=== PATIENT | male | born 1990 | race American Indian/Alaskan Native ===

== ENCOUNTER 2018-12-13 19:41 | Emergency (ER) | payer SELFPAY ==
--- NOTE | 2018-12-13 19:48 | Event Note ---
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 Further treatment and workup at subsequent clinical providers discretion. Patient/guardian urged not to elope from the ED as their condition may be serious if not clinically assessed and managed. Initial orders include: EKG, CXR
[2018-12-13 19:49] VITALS: BP 123/64
--- NOTE | 2018-12-13 20:11 | XRay Report ---
CHEST PA AND LATERAL VIEWS INDICATION: CP. COMPARISON: None FINDINGS: Support devices: None Heart: Normal Lungs/Pleura: Very mild thoracolumbar scoliosis. No acute pulmonary disease. IMPRESSION: 1. No significant abnormality. Signer Name: Curtis Shelton MD Signed: 12/13/2018 8:07 PM Workstation Name: [id number]
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
[2018-12-13] MEDS ORDERED: IBUPROFEN PO ONE (23:11)
== END 2018-12-13 23:30 | disposition home or self-care (01) ==
LOC: ED 19:41
DX: M94.0 Chondrocostal junction syndrome [Tietze] (principal); F17.200 Nicotine dependence, unspecified, uncomplicated; Z98.890 Other specified postprocedural states; Z79.899 Other long term (current) drug therapy
CPT/HCPCS: 71046; 93005; 93010

== ENCOUNTER 2019-05-01 20:56 | Emergency (ER) | payer SELFPAY ==
--- NOTE | 2019-05-01 21:34 | Emergency Department Report ---
Blank Doc - Documentation Documentation: 28-year-old male that presents with midsternum CP and cough. Stated pain is a ggravated/worsened with palpation. Denies any radiation. This initial assessment/diagnostic orders/clinical plan/treatment(s) is/are subject to change based on patient's health status, clinical progression and re- assessment by fellow clinical providers in the ED. Further treatment and workup at subsequent clinical providers discretion. Patient/guardians urged not to elope from the ED as their condition may be serious if not clinically assessed and managed. Initial orders include: 1- Patient sent to [facility] for further evaluation and treatment 2- CXR
[2019-05-01 21:35] VITALS: BP 114/57
--- NOTE | 2019-05-01 22:32 | XRay Report ---
CHEST 2 VIEWS INDICATION: cough. COMPARISON: 12/13/2018 FINDINGS: Support devices: None. Heart: Within normal limits. Lungs: No acute air space or interstitial disease. Pleura: No significant pleural effusion. No pneumothorax. Additional findings: Scoliosis thoracolumbar spine IMPRESSION: 1. No acute findings. Signer Name: Cem Mayers MD Signed: 05/01/2019 10:28 PM Workstation Name: [id number]
== END 2019-05-01 23:45 | disposition left against medical advice (07) ==
LOC: ED 20:56
DX: R07.89 Other chest pain (principal); Z53.21 Procedure and treatment not carried out due to patient leaving prior to being seen by health care provider
CPT/HCPCS: 71046

== ENCOUNTER 2019-05-20 16:19 | Emergency (ER) | payer SELFPAY | END 2019-05-20 22:15 | disposition home or self-care (01) | LOC: ED 16:19 | CPT/HCPCS: 36415; 71046; 80048; 84484; 85025; 93005; 93010 ==

== ENCOUNTER 2019-07-29 16:49 | Emergency (ER) | payer SELFPAY ==
[2019-07-29 19:08] VITALS: BP 129/82
--- NOTE | 2019-07-29 19:14 | Event Note ---
ED Screening Note ED Screening Note: yesterday began having flu like symptoms states he had vomiting yesterday states his throat feels dry +subjective fever +dry cough no diarrhea PMHx none no allergies to meds he is able to keep fluids down today
--- NOTE | 2019-07-29 19:18 | Emergency Department Report ---
Chief Complaint: Upper Respiratory Infection Stated Complaint: FEVER,BODYACHE,VOMITTING Time Seen by Provider: 07/29/19 19:09 - HPI History of Present Illness: pt is a 28 yo male who presents to the ED with c/o dry cough +nasal congestion states began a couple of days ago +nausea states he had a couple of episodes of vomiting yesterday but none today no diarrhea no fever no SOB PMHx none no allergies to meds former smoker quit a year ago vitals are normal on exam: Non toxic appearing, no acute distress atraumatic, normocephalic normal appearance of the eyes, PERRL, EOMI, no periorbital edema or ecchymosis normal TMs and canals, normal oropharynx, no tonsilar hypertrophy or exudates moist mucus membranes regular heart rate and rhythm, no gallops, no rubs, no murmurs breath sounds are clear bilaterally, no w/r/r, no stridor A&O x4, no focal neuro deficit skin is warm, dry, intact Examination consistent with viral illness Patient is currently afebrile He has not taken any medications today no clinical signs of dehydration Discussed the importance of oral rehydration Discussed symptomatic and supportive care with patient Patient has no history of being immunocompromise, no lung disease, no past medical history advised pt to please increase your fluid intake over the next several days. may take mucinex or theraflu over the counter. may alternate ibuprofen or tylenol every 6-8 hours as needed for fever of 100.4 or greater. get plenty of rest. follow up with a primary care doctor. return to the emergency room for any new or worsening symptoms including but not limited to shortness of breath, coughing up brown/white sputum, unable to tolerate by mouth intake, continued fevers after a week of symptoms, etc. Medical screening examination performed and there is no threat to life or limb at this time Patient referred to primary care physician Discussed in detail with patient strict return precautions - Exam Vital Signs: Vital Signs 07/29/19 19:03 Temperature 99.1 F Pulse Rate 64 Respiratory 20 Rate Blood Pressure 129/82 O2 Sat by Pulse 99 Oximetry MSE screening note: Focused history and physical exam performed. ED Disposition for MSE Clinical Impression: Viral illness Disposition: MED SCREENING EXAM-LEFT Is pt being admited?: No Does the pt Need Aspirin: No Condition: Stable Instructions: Viral Syndrome (ED) Additional Instructions: please increase your fluid intake over the next several days. may take mucinex or theraflu over the counter. may alternate ibuprofen or tylenol every 6-8 hours as needed for fever of 100.4 or greater. get plenty of rest. follow up with a primary care doctor. return to the emergency room for any new or worsening symptoms including but not limited to shortness of breath, coughing up brown/white sputum, unable to tolerate by mouth intake, continued fevers after a week of symptoms, etc. Referrals: CURLY LUI MD [Staff Physician] - 2-3 Days [facility] [Outside] - 2-3 Days [facility] [Outside] - 2-3 Days Forms: Work/School Release Form(ED) Time of Disposition: 19:16 Print Language: BULGARIAN
== END 2019-07-29 19:30 | disposition left against medical advice (07) ==
LOC: ED 16:49
DX: B34.9 Viral infection, unspecified (principal); Z87.891 Personal history of nicotine dependence; Z98.890 Other specified postprocedural states
CPT/HCPCS: 99281

== ENCOUNTER 2020-03-22 21:16 | Emergency (ER) | payer SELFPAY ==
--- NOTE | 2020-03-23 00:21 | XRay Report ---
CHEST 1 VIEW 03/22/2020 11:10 PM INDICATION / CLINICAL INFORMATION: Chest Pain. COMPARISON: 02/17/20 FINDINGS: SUPPORT DEVICES: None. HEART / MEDIASTINUM: No significant abnormality. LUNGS / PLEURA: No significant pulmonary or pleural abnormality. No pneumothorax. ADDITIONAL FINDINGS: Mild thoracic scoliosis is unchanged. IMPRESSION: 1. No acute findings. No change. Signer Name: Vasyl Hernandez MD Signed: 03/23/2020 12:16 AM Workstation Name: [id number]
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
[2020-03-23 06:25] VITALS: BP 115/78
== END 2020-03-23 03:36 | disposition home or self-care (01) ==
LOC: ED 21:16
DX: R07.9 Chest pain, unspecified (principal); R51.9 Headache, unspecified; F17.200 Nicotine dependence, unspecified, uncomplicated; Z79.899 Other long term (current) drug therapy; Z98.890 Other specified postprocedural states
CPT/HCPCS: 71045; 93005

== ENCOUNTER 2020-04-28 15:57 | Emergency (ER) | payer SELFPAY ==
[2020-04-28 16:05] VITALS: BP 128/71
--- NOTE | 2020-04-28 17:21 | Emergency Department Report ---
Chief Complaint: Upper Respiratory Infection Stated Complaint: CHEST PAIN/BODY ACHE/HEADACHE Time Seen by Provider: 04/28/20 17:19 - HPI History of Present Illness: Patient is a 29-year-old male presents emergency room with complaints of generalized body aches that began yesterday. He has associated headache and fever. He denies any cough, nausea, vomiting, diarrhea, rhinorrhea, sore throat, ear pain, chills, abdominal pain, chest pain, shortness of breath, dark urine, urinary symptoms. No past medical history. No allergies to medications. He denies any sick contacts or recent travel. Vitals are normal On exam: Non toxic appearing, no acute distress atraumatic, normocephalic normal appearance of the eyes, PERRL, EOMI, no periorbital edema or ecchymosis moist mucus membranes, normal oropharynx, normal TMs and canals bilaterally regular heart rate and rhythm, no gallops, no rubs, no murmurs breath sounds are clear bilaterally, no w/r/r, no respiratory distress, no accessory muscle use, no stridor A&O x4, no focal neuro deficit skin is warm, dry, intact Patient is presenting with viral-like symptoms He has no clinical signs of bacterial pneumonia or bacterial bronchitis No clinical signs of bacterial sinusitis He has no clinical signs of dehydration Discussed supportive care and symptomatic treatment with patient Patient is presenting with the symptoms during COVID-19 pandemic, discussed COVID-19 with patient, discussed strict return precautions, discussed outpatient testing, discussed self quarantine Patient be referred to primary care physician Discussed very strict return precautions Medical screening examination performed there is no threat to life or limb at this time - Exam Vital Signs: Vital Signs 04/28/20 16:04 Temperature 98.1 F Pulse Rate 64 Respiratory 14 Rate Blood Pressure 128/71 O2 Sat by Pulse 97 Oximetry MSE screening note: Focused history and physical exam performed. ED Disposition for MSE Clinical Impression: Viral illness Disposition: Z- MED SCREENING EXAM-LEFT Is pt being admited?: No Does the pt Need Aspirin: No Condition: Stable Instructions: Viral Illness, Adult Additional Instructions: Please increase your fluid intake over the next several days. May take Tylenol as needed for fever or body aches. May take gdjy-bnt-zjoezel cold symptom relief medication such as Mucinex or TheraFlu. Follow-up with a primary care doctor for reexamination. Return to emergency room immediately for any new or worsening symptoms including but not limited to difficulty breathing, shortness of breath, severe chest pain, unable to tolerate by mouth intake, etc. Please self quarantine for 10 days from the onset of your symptoms. Please do not go out in public. If you are around others at home please wear a mask. If you need to cough or sneeze please do so in a napkin and immediately throw it away and immediately wash your hands. Wash your hands frequently. Wipe everything down. Recommend for you to get COVID-19 testing, may have this done at primary care doctor, health department, [facility] testing center. Referrals: CURLY LUI MD [Staff Physician] - 2-[address] [facility] [Provider Group] - 2-3 Days [facility], [LAB/CONTRACT] - 2-3 Days Forms: Work/School Release Form(ED) Time of Disposition: 17:25 Print Language: TURKMEN
== END 2020-04-28 17:36 | disposition left against medical advice (07) ==
LOC: ED 15:57
DX: R51.9 Headache, unspecified (principal); R50.9 Fever, unspecified; Z53.21 Procedure and treatment not carried out due to patient leaving prior to being seen by health care provider

== ENCOUNTER 2020-08-05 23:07 | Emergency (ER) | payer SELFPAY ==
[2020-08-05] MEDS ORDERED: ACETAMINOPHEN 500 MG TAB PO ONE (23:15)
[2020-08-05 23:16] VITALS: BP 141/89
[2020-08-05 23:27] LABS: Basophils # (Auto) 0.1 K/mm3 (0.0-0.1); Basophils % (Auto) 0.9 % (0.0-1.8); Eosinophils # (Auto) 0.3 K/mm3 (0.0-0.4); Eosinophils % (Auto) 4.6 % (0.0-4.3); Hematocrit 44.3 % (35.5-45.6); Hemoglobin 15.6 gm/dl (11.8-15.2); Lymphocytes % (Auto) 46.4 % (13.4-35.0); Mean Corpuscular HGB Conc 35 % (32-34); Mean Corpuscular Volume 94 fl (84-94); Monocytes # (Auto) 0.7 K/mm3 (0.0-0.8); Monocytes % (Auto) 10.1 % (0.0-7.3); Platelet Count 281 K/mm3 (140-440); Red Blood Count 4.74 M/mm3 (3.65-5.03); Red Cell Distribution Width 12.6 % (13.2-15.2)
--- NOTE | 2020-08-05 23:44 | XRay Report ---
CHEST 1 VIEW 08/05/2020 11:32 PM INDICATION / CLINICAL INFORMATION: cough. COMPARISON: 03/23/2020. FINDINGS: SUPPORT DEVICES: None. HEART / MEDIASTINUM: No significant abnormality. LUNGS / PLEURA: No significant pulmonary or pleural abnormality. No pneumothorax. ADDITIONAL FINDINGS: No significant additional findings. IMPRESSION: No acute abnormality. Signer Name: Quan Mane MD Signed: 08/05/2020 11:39 PM Workstation Name: [id number]
[2020-08-05 23:52] LABS: Alanine Aminotransferase 26 units/L (7-56); Albumin 4.6 g/dL (3.9-5); BUN/Creatinine Ratio 8; Blood Urea Nitrogen 7 mg/dL (9-20); Calcium 9.3 mg/dL (8.4-10.2); Hemolysis Index 31
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
[2020-08-06 01:32] LABS: Bilirubin,Urine NEG (Negative); Blood,Urine NEG (Negative); Color,Urine Yellow (Yellow); Mucus,Urine FEW /HPF; Protein,Urine <15 mg/dL mg/dL (Negative)
== END 2020-08-06 01:41 | disposition home or self-care (01) ==
LOC: ED 23:07
DX: J06.9 Acute upper respiratory infection, unspecified (principal); J20.9 Acute bronchitis, unspecified; Z79.899 Other long term (current) drug therapy
CPT/HCPCS: 36415; 71045; 80053; 81001; 85025